=== PATIENT | male | born 1975 | race Caucasian/White ===

== ENCOUNTER → 2016-10-23 | Outpatient (CLI) | payer OTHER ==
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
== END ==
LOC: IMA 18:05
DX: Z02.89 Encounter for other administrative examinations (principal)